=== PATIENT | female | born 1965 | race Hispanic/Latino ===

== ENCOUNTER 2019-09-23 05:41 | Emergency (ER) | payer BC ==
[~2019-09-23] VITALS: Ht 160 cm; Wt 70.3 kg
[2019-09-23] MEDS ORDERED: KETOROLAC TROMETHAMINE 30 MG/ML VIAL IV STA (06:03)
[2019-09-23] MEDS ORDERED: SODIUM CHLORIDE 0.9% 1000ML 1,000 ML IV SCH ×2 (06:15)
[2019-09-23] MEDS ORDERED: SODIUM CHLORIDE 0.9% 1000ML 1,000 ML ONE (06:20)
[2019-09-23] MEDS ORDERED: KETOROLAC TROMETHAMINE 30 MG/ML VIAL ONE (06:20)
[2019-09-23] MEDS ORDERED: SODIUM CHLORIDE 0.9% 50ML 50 ML ONE (06:25)
[2019-09-23] MEDS ORDERED: IOPAMIDOL 370 MG/ML 200 ML INFUS..BTL INJ ONE (06:25)
[2019-09-23] MEDS ORDERED: ONDANSETRON HCL INJ 2MG/ML 2ML 2 MG/ML VIAL IV STA (07:00)
[2019-09-23] MEDS ORDERED: POTASSIUM CHLORIDE 10MEQ/100ML 100 ML IV ONE ×2 (07:00)
[2019-09-23] MEDS ORDERED: POTASSIUM CHLORIDE 20 MEQ TAB CR PO ONE (07:02)
[2019-09-23] MEDS ORDERED: MORPHINE SULFATE INJ 4 MG/ML INJ 1ML ONE (07:17)
[2019-09-23] MEDS ORDERED: ONDANSETRON HCL INJ 2MG/ML 2ML 2 MG/ML VIAL ONE (07:17)
[2019-09-23] MEDS ORDERED: MORPHINE SULFATE 2 MG/ML SYR 1ML IV ONE (07:30)
[2019-09-23] MEDS ORDERED: POTASSIUM CHLORIDE 10MEQ EA PO ONE (07:45)
--- NOTE | 2019-09-23 08:49 | Diagnostic Imaging Report ---
CT abdomen and pelvis with contrast History: abdominal pain Comparison: none Technique: serial axial imaging was performed following up to 100cc of non ionic iodinated intravenous contrast as per departmental protocol. Multiplanar images are reconstructed and reviewed when indicated. This CT examination is performed using one or more of the following dose reduction techniques: Automated exposure control, adjustment of the mA and /or kV according to patient size, and/or use of iterative reconstruction technique. Findings: Partially imaged bilateral breast implants. Unremarkable appearance of pancreas and spleen. Unremarkable appearance of liver and gallbladder. Unremarkable appearance of adrenal glands, kidneys, ureters, and urinary bladder. Unremarkable appearance of the uterus and adnexa.. No small or large bowel obstruction. No apparent bowel wall thickening. No findings to indicate acute appendicitis. No free fluid or lymphadenopathy. No abdominal aortic aneurysm. No aggressive osseous lesion. Impression: No acute findings in the abdomen or pelvis. Signed by: Montez Rodriguez MD on 09/23/2019 8:46 AM
[2019-09-23 08:59] VITALS: BP 122/66
[2019-09-23] MEDS ORDERED: HYDROCODONE/APAP 5MG-325MG TAB ONE (09:15)
[2019-09-23] MEDS ORDERED: HYDROCODONE/APAP 5MG-325MG TAB PO ONE ×2 (09:15→09:30)
== END 2019-09-23 09:14 | disposition home or self-care (01) ==
LOC: FSED 05:41
DX: R10.31 Right lower quadrant pain (principal); R10.32 Left lower quadrant pain
CPT/HCPCS: 74177; 80053; 80307; 81003; 85025; 99284; J1885; J2270 ×2; J2405; J3480; J7030; Q9967